=== PATIENT | male | born 1980 | race Caucasian/White ===

== ENCOUNTER 2016-07-31 08:23 | Emergency (ER) | payer SELFPAY ==
[2016-07-31 09:05] LABS: Hematocrit 43.3 % (42.0-52.0); Hemoglobin 14.6 gm/dL (13.5-18.0); Mean Cell Volume 89.8 fl (78-100); Mean Corpuscular Hemoglobin 30.3 pg (27-31); Mean Corpuscular Hgb Conc 33.7 g/dl (32-36); Mean Platelet Volume 9.2 fl (6.0-9.5); Neutrophil # 6.4 K/mm3 (1.3-6.0); Neutrophil % 67.8 % (42-75.0); Platelet Count 248 K/mm3 (150-450); Red Blood Count 4.82 M/mm3 (4.7-6.0); Red Cell Distribution Width 12.9 % (11.5-14.0); White Blood Count 9.4 K/mm3 (4.0-10.5)
[2016-07-31 09:26] LABS: BUN/Creatinine Ratio 11.1 (9.0-21.6); Blood Urea Nitrogen 9 mg/dL (6-23); Glucose * 108 mg/dL (70-110); Sodium 144 mmol/L (132-142)
[2016-07-31 09:27] LABS: ALT 17 U/L (19-67); AST 11 U/L (0-48); Albumin * 3.7 gm/dl (3.4-5.0); Alkaline Phosphatase * 82 U/L (50-170); Anion Gap 14.2 mmol/L (6.8-13.8); Bilirubin, Total 0.7 mg/dL (0.0-1.1); Ca. Corrected For Albumin 8.7 mg/dL (8.4-10.2); Calcium * 8.8 mg/dL (7.9-10.9); Carbon Dioxide 25.4 mmol/L (24-32.6); Chloride 108 mmol/L (97-106); Potassium 3.6 mmol/L (3.4-4.6); Salicylate 3.3 mg/dL (2.8-20.0); T4 Free * 0.96 ng/dL (0.76-1.46); TSH * 0.282 uIU/mL (0.358-3.74); Total Protein 6.7 gm/dL (6.2-8.2)
[2016-07-31 09:35] LABS: Urine Bilirubin Negative (NEGATIVE); Urine Blood Negative /ul (NEGATIVE); Urine Ketone Negative (NEGATIVE); Urine Nitrite Negative (NEGATIVE); Urine Protein Negative (NEGATIVE); Urine Specific Gravity 1.025 SP.GR. (1.005-1.030); Urine Urobilinogen Normal (NORMAL)
[2016-07-31 09:43] LABS: Urine Appearance Clear; Urine Bacteria TRACE; Urine Color Dark Yellow; Urine RBC None Seen /hpf (0-5)
[2016-07-31 09:48] LABS: Cocaine Ur Negative (NEGATIVE); Urine Barbiturate Negative (NEGATIVE); Urine Benzodiazepines Negative (NEGATIVE); Urine Opiates Negative (NEGATIVE); Urine PCP Negative (NEGATIVE); Urine THC Positive (NEGATIVE)
--- NOTE | 2016-07-31 12:10 | ERNOTE ---
Back Pain ER HPI Date of Service: 07/31/16 Presenting Symptoms: hx chronic back pain Time Seen by Provider: 07/31/16 08:44 Source: patient Exam Limitations: no limitations Immunizations: IMMUNIZATION HX History of Influenza Vaccine No Hx Pneumococcal Vaccination No Allergies/Adverse Reactions: Allergies No Known Allergies Allergy (Unverified 07/31/16 08:41) Home Medications: HOME MEDICATIONS Cephalexin Monohydrate [Keflex] 500 mg PO QID #28 cap 07/31/16 [Last Taken Unknown] Narrative: Patient presents to the ED via EMS. He states that the main reason he called EMS was d/t his mind racing. he has a history of chronic back pain since age 14 and this chronic pain is there but no new pain, change in pain or new N/T/W. He feels depressed and has been having some thoughts of jumping from something high. He does not know exactly how long this has been going on for. No CP or SOB. No abdominal pain. Denies new acute numbness, tingling or weakness. He is homeless. He has MS and this has been present for approx 6 years. Has not tried to OD. Timing: Reports: constant Quality/Severity: Reports: other - Chronic back pain is unchanged from prior. Location of pain: Reports: other - mid back, unclanged location from chronic. Activities at Onset: Reports: other - chronic Review of Systems - Review of Systems Constitutional: Absent: fever ENT: Present: no symptoms reported Respiratory: Present: no symptoms reported Cardiology: Present: no symptoms reported Gastrointestinal/Abdominal: Present: no symptoms reported Genitourinary: Absent: dysuria Musculoskeletal: Present: See HPI Skin: Present: no symptoms reported All Other Systems: All systems neg except as marked - Patient's Past Medical History Patient History - Medical: Other Patient History - Cardiac/Respiratory: No pertinent hx Patient History - Cancer: No Hx of Cancer Patient History - Surgical Procedures: Other Patient History - Other: None - Social History Living Situations: home Psych History: Hx of Depression - Immunizations Hx Pneumococcal Vaccination: No History of Influenza Vaccine: No Physical Exam - Physical Exam General Appearance: Present: alert, no apparent distress Eye Exam: Normal inspection: bilateral, PERRL: bilateral Ears, Nose, Throat: Present: normal ENT inspection Neck: Present: normal inspection Respiratory: Present: no respiratory distress, normal breath sounds, no accessory muscle use, lungs clear Cardiovascular/Chest: Present: regular rate, rhythm, no murmur Gastrointestinal/Abdominal: Present: normal bowel sounds, nontender, nondistended, soft. Absent: tenderness Back Exam: Present: other - there is paraspinal muscular tenderness low thoracic , upper lumbar. No localizing point vertebral tenderness. Nothing to suggest infectious process or fracture.. Absent: CVA tenderness (R), CVA tenderness (L) Extremity Exam: Present: normal inspection, normal range of motion Neurological Exam: Present: alert, no motor/sensory deficits, other - No evidence of acute, focal motor or sensory deficit given MS and chronic issues. No evidence of cauda-equina syndrome. No acute or new bowel or bladder issues. He seems ot have a passive wish. No hallucinations. No HI. Skin Exam: Absent: skin rash ED Progress - Results and Orders Patient's Lab Results:: I have reviewed the patient's lab results. - Vital Signs Patient's Vital Signs:: I have reviewed the patient's vital signs. Vital Signs: Vital Signs 07/31/16 07/31/16 08:29 10:16 Temperature 98.1 C H Pulse Rate 83 84 Respiratory 12 12 Rate Blood Pressure 108/73 109/74 O2 Sat by Pulse 99 99 Oximetry - Progress/Reassessment Chief Complaint: Back Pain Progress:: Unchanged Progress Note-Subjective: 07/31/16 12:05 Chronic back pain, this was not the main reasons he came in. I do not feel imaging indicated. Nothing to suggest diskitis, acute neuro deficit, cauda- equina syndrome or infectious process. He was seen in the ED by Dr Chacon for psychiatric eval and psych felt he did not meet admission criteria. Will attempt to maximize his outpatient living situation. 07/31/16 17:58 Departure Clinical Impression: Chronic back pain, UTI (urinary tract infection) - Departure Disposition: Home self-care Condition: Stable Instructions: Back Pain, Adult Additional Instructions: Follow-up with doctor in 2-3 days for a re-check. Antibiotic as directed. Return for weakness, fever or if your condition worsens or changes in any way. Prescriptions: Cephalexin Monohydrate [Keflex] 500 mg PO QID #28 cap
--- NOTE | 2016-07-31 12:57 | CONS ---
HPI - General Narrative: IDENTIFYING INFORMATION Ralph Mora is a 35 year old, single, unemployed, homeless male seen at the [facility] Emergency Department at the request of his ER attending Physician, Dr. Harley Kwan for a Psychiatric Consultation to determine suicidality and disposition options.Reason for admission was back pain. BRIEF BACKGROUND HISTORY This fellow is the younger of two siblings who were raised in [place], [place], just [place] of our hospital.According to him , his whole world started spiralling downward when his devout Taoist family was sundered by an ugly set of divorce proceedings when he was 14 years old. Since that time, he claims that his father has not really shown any credible hint of interest in him or his older sister {by two years, who is with children and lives two doors down from his mother}. He describes his mother and sister as "great, warm caring people" until he was diagnosed with a malignant and rapidly devolving form of Multiple Sclerosis in ."Since that diagnosis, my mother kicked me out of her home because she claims that she cannot bear to watch me wither away and miserably from this horrible illness. My father , who is supposedly remarried and lives somewhere in [place], refuses to call me or give me his phone number of address.I am sure my sister loves me but she has a life of her own and I don't want6 to be an imposition on her family because I am not that close to her ." Since the diagnosis in 2010 , he has been quite peripatetic . He was first diagnosed in [place], [place] and allegedly was given "ten years to live." Then he moved to [place], [place] because he wanted to be in a state where medical marijuana was legal: "Believe it or not, it really does wonders for my back pain more than any drug or procedure available out there. I gave up alcohol completely four years ago and have never tried Methamphetamine or amphetamines at all.Other than marijuana, which I do not consider to be a drug because it is an herb, I only experimented with drugs except an encounter with cocaine a long time ago. All it did was keep me awake. Apart from being morbidly obese since childhood, I really did not have serious psychiatric problems. I used to be quite smart and , in fact, finished my GED and went to college to study Psychology and computer programming.Now, since my MS was diagnosed, I have become unbelievably dumb, forgetful , hopeless, hapless and feeling helpless.The good thing though is that I am no longer morbidly obese and fluctuate between 150 to 250 lbs. Lately, especially this week when I was so desperate for snf and food that I ended up in the [facility]eless [facility] here in [facility]. However, they only allow people to stay there for 3 days and I have nowhere else to go. I was hoping that they could just put me in a residential psychiatric facility while I look for someplace to live in.I know , deep down , that being raised Taoist and the fact that I am so pissed with God, I really am too chicken to kill myself." He has a 14 year old son [id number] , who lives with his recently nmarried mother in [place], [place]. The mother absolutely forbids him to allow him to have any contact with his son whatsoever. This fellow shows no sign of psychosis or an endogenous form of affective disorder. The fact of the matter is, given this fellow's sets of physical ailments, totally absent support systems and any semblance of financial resources , I would worry that he might have a serious mental illness called "kalopsia" if he were jumping up and down doing an Thai jig, given his very Dickensian reality. This fellow has never had psychiatric problems or psychiatric care in the past. PSYCHIATRIC EXAMINATION This fellow was interviewed in Room C-2 in our Emergency Department. He wore a hospital gown and looked disheveled and having poor toliet. The neurological manifestations of his devolving Multiple sclerosis are pretty obvious at first blush: He definitely speaks in a slurred garbled speech like a person having a very hot potato in his mouth. He had coarse choreoathetotic movements of his left upper extremity.Some horizontal nystagmus was detectable. Judgment, orientation, abstract thinking and calculation are within the range of normal. While he says he has gross deficits in recent and remote memory, my MMSE did not reveal that severe a set of deficits. IMPRESSION AND RECOMMENDATIONS 1-Multiple sclerosis, advanced 2-Severe, normal bereavement 3-Adjustment reaction to penury, physical disability, and destitution This is an urgent humanitarian , social placement, ecological issue that challenges this [facility]'s sense of moral responsibility beyond what the legal process mandates. As is expounded in [employer]'s "[employer] [place]" : The quality of mercy must never be strained ...This man needs to have the basic 3 of his 7 Basic human needs to be met right now. I doubt if he will meet the stringent DRG criteria of whatever remaining inpatient psychiatric facilities there are left in our [facility] with their paucity and compounded daily exigencies. Thank you for this kind referral. Time spent:90 minutes. Ximena Chacon M.D - History of Present Illness Allergies/Adverse Reactions: Allergies No Known Allergies Allergy (Unverified 07/31/16 08:41) Home Medications: Home Medications Medication Instructions Recorded Last Taken NK [No Home Medication] 07/31/16 Unknown - Narrative Narrative: IDENTIFYING INFORMATION Ralph Mora is a 35 year old, single, unemployed, homeless male seen at the [facility] Emergency Department at the request of his ER attending Physician, Dr. Harley Kwan for a Psychiatric Consultation to determine suicidality and disposition options.Reason for admission was back pain. BRIEF BACKGROUND HISTORY This fellow is the younger of two siblings who were raised in [place], [place], just 25 miles [place] of our hospital.According to him , his whole world started spiralling downward when his devout Taoist family was sundered by an ugly set of divorce proceedings when he was 14 years old. Since that time, he claims that his father has not really shown any credible hint of interest in him or his older sister {by two years, who is with children and lives two doors down from his mother}. He describes his mother and sister as "great, warm caring people" until he was diagnosed with a malignant and rapidly devolving form of Multiple Sclerosis in ."Since that diagnosis, my mother kicked me out of her home because she claims that she cannot bear to watch me wither away and miserably from this horrible illness. My father , who is supposedly remarried and lives somewhere in [place], refuses to call me or give me his phone number of address.I am sure my sister loves me but she has a life of her own and I don't want6 to be an imposition on her family because I am not that close to her ." Since the diagnosis in 2010 , he has been quite peripatetic . He was first diagnosed in [place], [place] and allegedly was given "ten years to live." Then he moved to [place], [place] because he wanted to be in a state where medical marijuana was legal: "Believe it or not, it really does wonders for my back pain more than any drug or procedure available out there. I gave up alcohol completely four years ago and have never tried Methamphetamine or amphetamines at all.Other than marijuana, which I do not consider to be a drug because it is an herb, I only experimented with drugs except an encounter with cocaine a long time ago. All it did was keep me awake. Apart from being morbidly obese since childhood, I really did not have serious psychiatric problems. I used to be quite smart and , in fact, finished my GED and went to college to study Psychology and computer programming.Now, since my MS was diagnosed, I have become unbelievably dumb, forgetful , hopeless, hapless and feeling helpless.The good thing though is that I am no longer morbidly obese and fluctuate between 150 to 250 lbs. Lately, especially this week when I was so desperate for snf and food that I ended up in the Homeless Long Term here in [facility]. However, they only allow people to stay there for 3 days and I have nowhere else to go. I was hoping that they could just put me in a residential psychiatric facility while I look for someplace to live in.I know , deep down , that being raised Taoist and the fact that I am so pissed with God, I really am too chicken to kill myself." He has a 14 year old son [id number] , who lives with his recently nmarried mother in [place], [place]. The mother absolutely forbids him to allow him to have any contact with his son whatsoever. This fellow shows no sign of psychosis or an endogenous form of affective disorder. The fact of the matter is, given this fellow's sets of physical ailments, totally absent support systems and any semblance of financial resources , I would worry that he might have a serious mental illness called "kalopsia" if he were jumping up and down doing an Thai jig, given his very Dickensian reality. This fellow has never had psychiatric problems or psychiatric care in the past. PSYCHIATRIC EXAMINATION This fellow was interviewed in Room C-2 in our Emergency Department. He wore a hospital gown and looked disheveled and having poor toliet. The neurological manifestations of his devolving Multiple sclerosis are pretty obvious at first blush: He definitely speaks in a slurred garbled speech like a person having a very hot potato in his mouth. He had coarse choreoathetotic movements of his left upper extremity.Some horizontal nystagmus was detectable. Judgment, orientation, abstract thinking and calculation are within the range of normal. While he says he has gross deficits in recent and remote memory, my MMSE did not reveal that severe a set of deficits. IMPRESSION AND RECOMMENDATIONS 1-Multiple sclerosis, advanced 2-Severe, normal bereavement 3-Adjustment reaction to penury, physical disability, and destitution This is an urgent humanitarian , social placement, ecological issue that challenges this [facility]'s sense of moral responsibility beyond what the legal process mandates. As is expounded in [employer]'s "[employer] [place]" : The quality of mercy must never be strained ...This man needs to have the basic 3 of his 7 Basic human needs to be met right now. I doubt if he will meet the stringent DRG criteria of whatever remaining inpatient psychiatric facilities there are left in our [facility] with their paucity and compounded daily exigencies. Thank you for this kind referral. Time spent:90 minutes. Ximena Chacon M.D - Patient's Past Medical History Patient History - Medical: Other Patient History - Cardiac/Respiratory: No pertinent hx Patient History - Cancer: No Hx of Cancer Patient History - Surgical Procedures: Other Patient History - Other: None - Social History Living Situations: home Psych History: Hx of Depression - Immunizations Hx Pneumococcal Vaccination: No History of Influenza Vaccine: No Physical Examination - Exam Vital Signs: Vital Signs - Last Taken Temp 98.1 C H 07/31/16 08:29 Pulse 88 07/31/16 12:52 Resp 12 07/31/16 12:52 BP 114/86 07/31/16 12:52 Pulse Ox 98 07/31/16 12:52 O2 Oxygen Delivery Method Room Air - Results and Findings: Lab/Microbiology results last 24 hrs: Abnormal/Pending Laboratory Last 24 HRS 07/31/16 07/31/16 07/31/16 09:22 09:22 08:57 Eosinophils % Neutrophils # Sodium Plasma Sodium Chloride Anion Gap ALT TSH Ur Leukocyte Esterase 25 H Urine WBC 5-10 H Acetaminophen Less than 0.2 L Urine Amphetamine Positive H Urine Marijuana (THC) Positive H 07/31/16 07/31/16 08:57 08:57 Eosinophils % 3.4 H Neutrophils # 6.4 H Sodium 144 H Plasma Sodium 144 H Chloride 108 H Anion Gap 14.2 H ALT 17 L TSH 0.282 L Ur Leukocyte Esterase Urine WBC Acetaminophen Urine Amphetamine Urine Marijuana (THC)
[2016-07-31 18:00] VITALS: BP 122/87
== END 2016-07-31 18:20 | disposition home or self-care (01) ==
LOC: ER 08:23
DX: M54.9 Dorsalgia, unspecified (principal); G89.29 Other chronic pain; N39.0 Urinary tract infection, site not specified
CPT/HCPCS: 36415; 80053; 81001; 84439; 84443; 85025; 87086; 99284; G0479; G0480; G0481